=== PATIENT | male | born 1985 | race Caucasian/White ===

== ENCOUNTER 2023-03-27 10:44 | Emergency (ER) | payer OTHER, SELFPAY ==
--- NOTE | 2023-03-27 10:46 | DI.CT.S_ITS ---
PROCEDURE: CT HEAD/BRAIN WO CON INDICATIONS: Hit head with sledgehammer TECHNIQUE: Noncontrast 4.5 mm thick angled axial sections acquired from the foramen magnum to the vertex, with coronal and sagittal reformats. For radiation dose reduction, the following was used: automated exposure control, adjustment of mA and/or kV according to patient size. COMPARISON: None. FINDINGS: Image quality: Excellent. CSF spaces: Basal cisterns are patent. No extra-axial fluid collections. Ventricles are normal in size and shape. Brain: No midline shift. No intracranial masses or hemorrhage. Dc-white matter interface is normal. Skull and face: Calvarium and visualized facial bones are intact, without suspicious lesions. Sinuses: Visualized sinuses and mastoids are clear. IMPRESSION: No acute intracranial hemorrhage is seen. No acute intracranial process is seen. No displaced calvarial fracture can be seen. Dictated by: Guille Infante M.D. on 03/27/2023 at 10:11 Approved by: Guille Infante M.D. on 03/27/2023 at 10:12
[2023-03-27 10:48] VITALS: BP 164/108; PULSE 111; RESP 14; TEMP 36.6; O2SAT 100; BMI 21.6
--- NOTE | 2023-03-27 10:49 | ED.GENADULT ---
HPI - General Adult General Chief complaint: Head Injury Stated complaint: hit in head with sledge hammer Time Seen by Provider: 03/27/23 10:46 Source: patient Mode of arrival: Ambulatory Limitations: no limitations History of Present Illness HPI narrative: Patient is a 37-year-old male who sustained an injury to his right scalp. 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 Did sustain a cut to his head. He does need a tetanus shot. No other injuries from the event. There was no loss of consciousness. No neck pain. No vision changes. Related Data Allergies Allergy/AdvReac Type Severity Reaction Status Date / Time No Known Drug Allergies Allergy Verified 03/27/23 10:48 Review of Systems Constitutional Constitutional: Reports system reviewed and no additional complaints, except as documented Eyes Eyes: Reports system reviewed and no additional complaints, except as documented ENT Ears, Nose, Mouth, and Throat: Reports system reviewed and no additional complaints, except as documented Integumentary/Breasts Skin/Breast: Reports system reviewed and no additional complaints, except as documented Neurologic Neurologic: Reports system reviewed and no additional complaints, except as documented Hematologic/Lymphatic On Anticoagulants: No Patient History Social History Smoking Status: Current every day smoker Exam Initial Vital Signs Initial Vital Signs: Vital Signs Temperature 97.8 F 03/27/23 10:48 Pulse Rate 111 H 03/27/23 10:48 Respiratory Rate 14 03/27/23 10:48 Blood Pressure 164/108 H 03/27/23 10:48 Pulse Oximetry 100 03/27/23 10:48 Oxygen Delivery Method Room Air 03/27/23 10:48 Const General: cooperative, comfortable and No ill appearing [facility] Head: laceration (A T shaped laceration right frontal/parietal region) Eyes General: Yes appearance normal, both eyes and all related structures Skin Other: ?T? shaped laceration right frontal region. Each arm was approximately 1 cm in length. Neuro General: patient alert, patient awake, patient oriented x3 and moves all extremities Cognition: normal cognition Speech: speech normal Gait: normal gait Extrem General: normal to inspection Procedures Laceration Repair Laceration 1: Site: scalp Side (If applicable): right Size (cm): 3 Description: stellate Skin layer closed with: dermabond Course Orders Ordered: ED Orders 03/27/23 10:46 CT head/brain wo con Stat Discontinued Medications Diphtheria/Tetanus/Acell Pertussis (Tet,Diph,Pertuss(Acell),Vac/Pf 0.5 Ml Syringe) 0.5 ml IM .ONCE ONE Stop: 03/27/23 10:49 Last Admin: 03/27/23 10:54 Dose: 0.5 ml Documented By: JOEL Vital Signs Vital signs: Vital Signs - 8 hr 03/27/23 10:48 Temperature 97.8 F Pulse Rate 111 H Respiratory Rate 14 Blood Pressure 164/108 H Pulse Oximetry 100 Oxygen Delivery Method Room Air Medical Decision Making Imaging Data CT scan - head: Radiologist's Impression: PROCEDURE:? CT HEAD/BRAIN WO CON ? INDICATIONS:? Hit head with sledgehammer ? TECHNIQUE:? Noncontrast 4.5 mm thick angled axial sections acquired from the foramen magnum to the vertex, with coronal and sagittal reformats.? For radiation dose reduction, the following was used:? automated exposure control, adjustment of mA and/or kV according to patient size.? ? COMPARISON:? None. ? FINDINGS:? Image quality:? Excellent.? ? CSF spaces:? Basal cisterns are patent.? No extra-axial fluid collections.? Ventricles are normal in size and shape.? ? Brain:? No midline shift.? No intracranial masses or hemorrhage.? Dc-white matter interface is normal.? ? Skull and face:? Calvarium and visualized facial bones are intact, without suspicious lesions.? ? Sinuses:? Visualized sinuses and mastoids are clear.? IMPRESSION:? No acute intracranial hemorrhage is seen. ? No acute intracranial process is seen. ? No displaced calvarial fracture can be seen. MDM Narrative Medical decision making narrative: Patient is alert oriented x3. Has a GCS of 15. Head CT is unremarkable. No neck pain. No other injuries from the event. The ?T? laceration is a total of 3 cm with each leg being approximately 1 cm. It was closed with Dermabond. I discussed care instructions and return precautions with the patient. No indication for further radiologic studies. He expressed understanding and agreement with plan. Discharge Plan Departure Patient Disposition: Home Clinical Impression: Closed head injury, Laceration of scalp Instructions: DI for Laceration Repair-Skin Glue, DI for Closed Head Injury Activity Restrictions/Additional Instructions: You have no restrictions on your activities. You can eat like normal and sleep like normal. No restrictions on driving. You can take Tylenol if you develop any headache. You can shower like normal. The skin glue should start to come off on its own within approximately 1 week. Return to the emergency department for new or worsening symptoms. Referrals: Miscellaneous,Doctor, [Primary Care Provider] - Stand Alone Forms: Patient Portal/API
[2023-03-27] MEDS: TET,DIPH,PERTUSS(ACELL),VAC/PF 0.5 ML SYRINGE IM (10:54)
== END 2023-03-27 11:43 | disposition home or self-care (01) ==
PROVIDERS: Emergency Provider Emergency Medicine
DX: S01.01XA Laceration without foreign body of scalp, initial encounter (principal); W29.8XXA Contact with other powered hand tools and household machinery, initial encounter; Y99.0 Civilian activity done for income or pay; Z23 Encounter for immunization
CPT/HCPCS: 12002; 70450; 90471; 99283; 90715